=== PATIENT | female | born 1950 ===

== ENCOUNTER → 2016-12-13 | Outpatient (CLI) | payer OTHER, BC ==
[~2016-12-13] MED LIST: IBUP-103 PO; POLYSOL
[2016-12-13 10:24] LABS: CHOLESTEROL/HDL RATIO 4.2
== END | disposition home or self-care (01) ==
LOC: C.LAB1850 09:12
PROVIDERS: ATTEND Internal Medicine
DX: Z13.220 Encounter for screening for lipoid disorders (principal); Z13.1 Encounter for screening for diabetes mellitus